=== PATIENT | male | born 1990 | race Caucasian/White ===

== ENCOUNTER 2018-10-04 08:21 | Emergency (ER) | payer BC, OTHER ==
[~2018-10-04] VITALS: Ht 175.3 cm; Wt 86.4 kg
[2018-10-04 08:21] VITALS: BP 143/82
[2018-10-04] MEDS ORDERED: TRIA1CR80 TOP (09:13)
== END 2018-10-04 09:31 | disposition home or self-care (01) ==
LOC: M ED 08:21
DX: R21 Rash and other nonspecific skin eruption (principal)

== ENCOUNTER 2018-11-03 20:05 | Emergency (ER) | payer OTHER ==
[~2018-11-03] VITALS: Ht 175.3 cm; Wt 86.4 kg
[~2018-11-03 20:05] MED LIST: TRIA1CR80 TOP
[2018-11-03] MEDS ORDERED: PRED5PAK PO (21:40)
[2018-11-03 22:15] VITALS: BP 141/80
[2018-11-06 00:07] LABS: Lyme Disease IgG/IgM Antibodie <0.91 ISR (0.00-0.90); Lyme Disease IgM Ab Quantitati <0.80 index (0.00-0.79)
== END 2018-11-03 22:18 | disposition home or self-care (01) ==
LOC: M ED 20:05
DX: L26 Exfoliative dermatitis (principal); Z79.899 Other long term (current) drug therapy; Z79.52 Long term (current) use of systemic steroids

== ENCOUNTER → 2018-12-09 | Outpatient (CLI) | payer OTHER ==
[~2018-12-09] MED LIST changes: +PRED5PAK PO
[2018-12-09 13:37] LABS: HEPATITIS A ANTIBODY IGM NEGATIVE (NEGATIVE); HEPATITIS B CORE ANTIBODY IGM NEGATIVE (NEGATIVE); HEPATITIS B SURFACE ANTIGEN NEGATIVE (NEGATIVE); HEPATITIS C VIRUS ABY INDEX 0.1 INDEX (<0.8)
== END ==
LOC: M WUC 08:46
PROVIDERS: ATTEND Dermatology
DX: L23.9 Allergic contact dermatitis, unspecified cause (principal)

== ENCOUNTER 2019-02-17 02:22 | Emergency (ER) | payer OTHER, SELFPAY ==
[~2019-02-17] VITALS: Ht 175.3 cm; Wt 86.4 kg
[2019-02-17 04:51] VITALS: BP 133/78
[2019-02-19 00:08] LABS: Lyme Disease IgG/IgM Antibodie <0.91 ISR (0.00-0.90); Lyme Disease IgM Ab Quantitati <0.80 index (0.00-0.79)
== END 2019-02-17 04:55 | disposition home or self-care (01) ==
LOC: M ED 02:22
DX: S30.861A Insect bite (nonvenomous) of abdominal wall, initial encounter (principal); X58.XXXA Exposure to other specified factors, initial encounter; Y92.9 Unspecified place or not applicable; Y93.9 Activity, unspecified; Y99.9 Unspecified external cause status; Z72.0 Tobacco use

== ENCOUNTER 2022-10-05 23:25 | Emergency (ER) | payer SELFPAY ==
[~2022-10-05] VITALS: Ht 175.3 cm; Wt 79.5 kg
[2022-10-05 23:25] VITALS: BP 153/87
[2022-10-06 01:04] LABS: BASO # 0.1 10^3/uL (0.0-0.2); BASO % 0.6 % (0.0-1.0); EOS # 0.3 10^3/uL (0.0-0.5); EOS % 2.2 % (0.0-3.0); HEMATOCRIT 48.7 % (42.0-52.0); LYMPH # 2.3 10^3/uL (1.5-5.0); LYMPH % 19.2 % (24.0-44.0); MEAN CORPUSCULAR HEMOGLOBIN 31.4 pg (27.0-33.0); MEAN CORPUSCULAR HGB CONC 32.9 g/dl (32.0-36.5); MEAN CORPUSCULAR VOLUME 95.5 fl (80.0-96.0); MONO % 7.9 % (2.0-8.0); NEUTROPHILS # 8.4 10^3/uL (1.5-8.5); NEUTROPHILS % 69.8 % (36.0-66.0); PLATELET COUNT, AUTOMATED 236 10^3/uL (150-450)
[2022-10-06 01:39] LABS: BLOOD UREA NITROGEN 23 MG/DL (9-23); CALCIUM LEVEL 8.6 MG/DL (8.5-10.1); CARBON DIOXIDE LEVEL 29 MMOL/L (20-31); CHLORIDE LEVEL 104 MMOL/L (98-107); CREATININE FOR GFR 0.94 MG/DL (0.70-1.30); GLOMERULAR FILTRATION RATE > 60.0 (>60); GLUCOSE, FASTING 97 MG/DL (60-100); POTASSIUM SERUM 4.5 MMOL/L (3.5-5.1); SODIUM LEVEL 141 MMOL/L (136-145)
== END 2022-10-06 03:53 | disposition left against medical advice (07) ==
LOC: M ED 23:25
DX: Z53.21 Procedure and treatment not carried out due to patient leaving prior to being seen by health care provider (principal)

== ENCOUNTER → 2022-10-06 | Outpatient (REF) | payer BC ==
[2022-10-06 20:20] LABS: GC DNA AMPLIFICATION NEGATIVE (NEGATIVE)
== END ==
LOC: M WUC 18:23
PROVIDERS: ATTEND Student in an Organized Health Care Education/Training Program
DX: R31.0 Gross hematuria (principal)

== ENCOUNTER → 2022-10-18 | Outpatient (REF) | payer BC, SELFPAY ==
[2022-10-18 18:14] LABS: APPEARANCE, URINE MANUAL CLEAR (CLEAR); COLOR, URINE MANUAL YELLOW (YELLOW)
[2022-10-18 18:15] LABS: BILIRUBIN, URINE MANUAL NEGATIVE (NEGATIVE); BLOOD URINE MANUAL NEGATIVE (NEGATIVE); GLUCOSE, URINE (UA) MANUAL NEGATIVE (NEGATIVE); KETONE, URINE MANUAL NEGATIVE (NEGATIVE); LEUKOCYTE ESTERASE, URINE MAN NEGATIVE (NEGATIVE); NITRITE, URINE MANUAL NEGATIVE (NEGATIVE); PH,URINE MAN 6.5 UNITS (5.0 - 7.0); PROTEIN, URINE MANUAL NEGATIVE (NEGATIVE); UROBILINOGEN, URINE MANUAL NORMAL (NORMAL)
== END ==
LOC: M SMT 17:27
PROVIDERS: ATTEND Physician Assistant
DX: R31.0 Gross hematuria (principal)

== ENCOUNTER 2024-06-25 15:38 | Emergency (ER) | payer SELFPAY ==
[~2024-06-25] VITALS: Ht 175.3 cm; Wt 88.8 kg
[2024-06-25 17:44] VITALS: BP 158/83; TEMP 98.3; O2SAT 98
== END 2024-06-25 18:57 | disposition left against medical advice (07) ==
LOC: M ED 15:38
DX: Z53.21 Procedure and treatment not carried out due to patient leaving prior to being seen by health care provider (principal)

== ENCOUNTER 2024-06-28 10:06 | Emergency (ER) | payer BC, SELFPAY ==
[~2024-06-28] VITALS: Ht 175.3 cm; Wt 88.3 kg
[2024-06-28] MEDS: TETRACAINE 0.5% OPHTH SOLN 4ML OD ONE (12:15)
[2024-06-28] MEDS: FLUORESCEIN OPHTH 1MG STRIP OD ONE (12:15)
[2024-06-28] MEDS ORDERED: OCUF0.25 OD (12:40)
[2024-06-28] MEDS ORDERED: AMOX875T2 PO (12:40)
[2024-06-28 12:51] VITALS: BP 161/90; TEMP 98.8; O2SAT 99
== END 2024-06-28 12:52 | disposition home or self-care (01) ==
LOC: M ED 10:06
DX: H10.31 Unspecified acute conjunctivitis, right eye (principal); L03.213 Periorbital cellulitis; F17.210 Nicotine dependence, cigarettes, uncomplicated; Z79.2 Long term (current) use of antibiotics